=== PATIENT | male | born 1970 | race Caucasian/White ===

== ENCOUNTER 2024-07-02 13:11 | Emergency (ER) | payer MEDICAID, SELFPAY ==
[2024-07-02 13:17] VITALS: BP 179/96; PULSE 83; TEMP 36.8; O2SAT 97; BMI 38.0
--- NOTE | 2024-07-02 13:29 | ED_ITS ---
HPI - Extremity Injury (Upper) General: Chief Complaint: Extremity Injury, Upper Stated Complaint: Right thumb injury Time Seen by Provider: 07/02/24 13:23 Source: patient Mode of arrival: ambulatory Limitations: no limitations History of Present Illness: Patient is a 53-year-old male who presents to ED today for evaluation of a right thumb injury that he sustained yesterday after he was working on his motorcycle and accidentally got his thumb caught in a revolving chain. Few abrasions throughout the thumb. Last tetanus was over 8 years ago. Feels like something may be broke. complaint: injury to: right and finger Onset (ago): day(s) (yesterday) Other Extremity Injury: Right: fingers Other injuries: none Place: home Severity: severe Relieving factors: immobilization Exacerbating factors: movement of extremity Context: direct blow Associated symptoms: Reports no associated symptoms Related Data Previous Rx's Medication Instructions Recorded clindamycin HCl 300 mg capsule 300 mg PO Q6H 7 days #28 caps 07/02/24 Allergies Allergy/AdvReac Type Severity Reaction Status Date / Time Penicillins Allergy ALGY-Swell Verified 07/02/24 13:20 Lip/Tongue/Throat Review of Systems Musc: Reports: extremity pain (R thumb) and extremity swelling (R thumb) Neuro: Denies: numbness in extremities or sensory changes Physical Exam Const: COMMON NORMALS: no acute distress, no limitations, alert and well davy shed Extremity: RIGHT UPPER EXTREMITY: Yes hand & digits (TTP throughout R thumb mainly to proximal phalanx) Right hand and digits: Yes neurovascular exam (normal), Yes tendon exam (no tendon injuries appreciated) and Yes other (few mild abrasions that do not appear infected) Neuro: COMMON NORMALS: moves all extremities, no focal motor deficits and no sensory deficits noted SENSORIUM/ORIENTATION: Yes alert Course Vital Signs: Vital signs: Vital Signs Temperature 98.2 F 07/02/24 13:17 Pulse Rate 83 07/02/24 13:17 Blood Pressure 179/96 07/02/24 13:17 Pulse Oximetry 97 07/02/24 13:17 Oxygen Delivery Me thod Room Air 07/02/24 13:17 MDM - Extremity Injury (Upper) Medical Decision Making XR negative. Does have a few abrasions to the left thumb from cuts from the motorcycle chain. Will place on antibiotics. Recommend ice and elevation and monitoring for signs of infection. Return to ED precautions given. Medical Records I reviewed the patient's medical records. Lab Data Radiology Impressions Finger X-Ray 07/02/24 13:31 IMPRESSION: No acute fracture or dislocation. All radiology interpretation(s) finalized by discharge Discharge Plan Discharge Patient Disposition: Home Clinical Impression: Injury of right thumb Qualifiers: Encounter type: initial encounter Qualified Code(s): S69.91XA - Unspecified injury of right wrist, hand and finger(s), initial encounter Condition: Stable Prescriptions: New clindamycin HCl 300 mg capsule 300 mg PO Q6H 7 Days Qty: 28 0RF Discharge Orders: Discharge ED (Routine); Ordered 07/02/24 Ordered By: Nirali Beck Activity Restrictions/Additional Instructions: As we discussed, keep wounds on your thumb clean with warm soap and water. We will place you on antibiotics to hopefully avoid infection. You need to seek medical reevaluation for worsening pain, any redness, drainage, streaking up your hand or arm, fevers, or any other concerns you may have. Coding Level of Care Code ED [employer] for Orville Rebolledo
--- NOTE | 2024-07-02 13:31 | XRR_ITS ---
PROCEDURE INFORMATION: Exam: XR Right Finger(s) Exam date and time: 07/02/2024 2:06 PM Age: 53 years old Clinical indication: Injury or trauma; Other: Smashed thumb; Blunt trauma (contusions or hematomas); Finger; Right; Injury date: 07/01/24 TECHNIQUE: Imaging protocol: Radiologic exam of the right fingers. Views: Minimum 2 views. COMPARISON: No relevant prior studies available. FINDINGS: Bones/joints: No acute fracture or dislocation. 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 Soft tissues: Soft tissues are unremarkable as visualized. XR/XR finger RT min 2V [id number] IMPRESSION: No acute fracture or dislocation.
[2024-07-02] MEDS: tetanus-dipt-pertussis 0.5 mL SDV IM (13:50)
[2024-07-02 15:31] VITALS: BP 165/102; PULSE 72; O2SAT 96
== END 2024-07-02 15:32 | disposition home or self-care (01) ==
PROVIDERS: Emergency Provider Physician Assistant
DX: S60.312A Abrasion of left thumb, initial encounter (principal); W31.89XA Contact with other specified machinery, initial encounter; Z23 Encounter for immunization
CPT/HCPCS: 73140; 90471; 90715; 99283

== ENCOUNTER 2025-02-07 16:32 | Emergency (ER) | payer MEDICAID, SELFPAY ==
[2025-02-07 16:41] VITALS: BP 139/85; PULSE 90; RESP 18; TEMP 37.6; O2SAT 96; BMI 38.0
--- NOTE | 2025-02-07 16:49 | ED_ITS ---
Documented by User: Steven Roberts DO 02/08/25 08:02 HPI - Fall 2 General: Chief Complaint: Fall Stated Complaint: fell and cannot move head Time Seen by Provider: 02/07/25 16:49 History of Present Illness: 54-year-old male presents emergency room complaining of neck and head pain. He slipped and fell 2 days prior to presenting to the emergency room when he was walking on his desk it was wet. There is no loss of consciousness he did hit the back of his head he has had increasing neck pain since then it radiates into the upper back and shoulders but not into the arms. States whenever he moves his head particularly if he rotates or bends to the side he has significant worsening in pain Associated symptoms-after fall: Denies abdominal pain, chest pain or neck pain Related Data Home Medications ?Medication ?Instructions ?Recorded ?Confirmed albuterol sulfate 90 mcg/actuation 2 puff inhalation Q 4H 02/07/25 02/07/25 aerosol inhaler (Ventolin HFA) citalopram 20 mg tablet 20 mg PO DAILY 02/07/2501/16 hydroxyzine HCl 25 mg tablet 12.5 - 25 mg PO Q6H 02/0702/07/25 lisinopril 10 mg tablet 10 mg PO DAILY 02/07/2501/16 meclizine 25 mg tablet 25 mg PO Q8H 02/07/25 Previous Rx's ?Medication ?Instructions ?Recorded cyclobenzaprine 10 mg tablet 10 mg PO BID PRN muscle s pasm #20 02/07/25 tabs Allergies Allergy/AdvReac Type Severity Reaction Status Date / Time Penicillins Allergy ALGY-Swell Verified 07/02/24 13:20 Lip/Tongue/Throat Review of Systems 2 Const: Denies: fever(s) or chills Card: Denies: chest pain Resp: Denies: dyspnea GI: Denies: abdominal pain : Denies: dysuria, urinary frequency or urinary urgency Musc: Denies: neck pain or back pain Skin/Breast: Denies: rash Physical Exam 2 Const: COMMON NORMALS: no acute distress GENERAL APPEARANCE: cooperative and comfortable ORIENTATION/CONSCIOUSNESS: Yes awake, Yes oriented to person, Yes oriented to place and Yes oriented to time HENMT: COMMON NORMALS: normocephalic, atraumatic and hearing grossly normal bilaterally HEAD & SCALP: normocephalic and atraumatic Neck/C-Spine: OTHER: Minimal range of motion of the neck with palpation of the upper cervical spine at the lower occipital region patient has severe tenderness. Resp: COMMON NORMALS: normal respiratory effort, No retractions, No use of accessory muscles and clear to auscultation bilaterally AUSCULTATION: clear to auscultation bilaterally Cardio: COMMON NORMALS: regular rate, regular rhythm and No murmurs present (Cardio) RATE: regular rate RHYTHM: regular rhythm Extremity: COMMON NORMALS: normal to inspection, capillary refill normal, no clubbing, cyanosis or edema, no calf tenderness and no pedal edema Neuro: SENSORIUM/ORIENTATION: Yes oriented to person, Yes oriented to place and Yes oriented to time OTHER: Neurovascular the upper extremities strength is intact is 5 out of 5 with aircraft communicator strength at the elbows and of the shoulder girdle. Skin: COMMON NORMALS: no rashes or lesions noted GENERAL SKIN EXAM: no rashes or lesions noted Course 2 Vital Signs: Vital signs: Vital Signs Temperature 99.7 F H 02/07/25 16:41 Pulse Rate 71 02/07/25 18:45 Respiratory Rate 18 02/07/25 16:41 Blood Pressure 149/87 02/07/25 18:45 Pulse Oximetry 99 02/07/25 18:45 Oxygen Delivery Me thod Room Air 02/07/25 16:41 MDM - Fall Medical Decision Making CT cervical spine pending CT head to my read is unremarkable. Patient has a low-grade fever no leukocytosis. Care signed out to Dr. Beth at change of shift. See final notes for diagnosis and disposition. Patient is a awake and alert 54-year-old gentleman who is turned over to me pending reassessment after results of his CT scan of his head and neck and labs were obtained. Patient states that 3 nights ago he had walked out onto his deck and slipped on the wet decking causing him to fall back and strike his back and shoulders on the deck. He complains of primarily neck pain to the most cephalad portion of the neck in the occipital scalp and skull. Head CT was obtained which does not show any acute intracranial findings. He does not have any acute findings noted on CT scan of the cervical spine. Patient does have previous ACDF surgery. He was provided a dose of Toradol, dexamethasone, and Norflex here. CBC and CMP were obtained and are unremarkable. On my assessment patient is awake alert and in no acute distress. He is sitting up on the stretcher. He has 5 out of 5 strength in the bilateral upper and lower extremities with strong aircraft communicator strength bilaterally. He denies any weakness of his arms or legs. I have low suspicion for acute spinal cord pathology. He does report some numbness to the right thumb index and ring finger the radial nerve distribution. He has an appointment to see his primary care provider tomorrow at 10 AM. I think it is reasonable to continue some muscle relaxers, recommend alternation of cool and warm compresses, and follow-up with his PCP discuss further outpatient testing such as MRI. He expresses understanding and is comfortable with the plan. Lab Data 02/07/25 17:29 02/07/25 17:29 Radiology Impressions Cervical Spine CT 02/07/25 16:[address]: [address] evidence of acute cervical spine traumatic injury. 2. Additional findings, as above. Head CT 02/07/25 17:03 [address]PRESS[address]: 1[address] evidence of acute intracranial pathology. 2. Additional findings, as above. Laboratory Results WBC 10.84 10^3/uL (3.29-11.43) 02/07/25 17: RBC 5.11 10^6/uL (3.85-5.65) 02/07/25 17:29 Hgb 16.10 g/dL (11.27-16.99) 02/07/25 17: Hct 46.2 % (37-53) 02/07/25 17: MCV 90.4 fl (82-101) 02/07/25 17:29 MCH 31.5 pg (27-33) 02/07/25 17: MCHC 34.8 g/dL (30-55) 02/07/25 17: RDW 12.0 % (12.1-15.1) L 02/07/25 17: Plt Count 222 10^3/cmm (157-399) 02/07/25 17: MPV 9.9 fL (7.4-10.4) 02/07/25 17: Neut % (Auto) 59.4 % 02/07/25 17:29 Lymph % (Auto) 31.1 % 02/07/25 17: [place] % (Auto) 6.4 % 02/07/25 17: Eos % (Auto) 2.3 % 02/07/25 17: Baso % (Auto) 0.4 % 02/07/25 17: Neut # (Auto) 6.45 10^3/uL (1.8-7.7) 02/07/25 17: Lymph # (Auto) 3.4 10^3/uL (0.8-4.8) 02/07/25 17: [place] # (Auto) 0.7 10^3/uL (0.2-0.9) 02/07/25 17: Eos # (Auto) 0.3 10^3/uL (0.0-0.8) 02/07/25 17: Baso # (Auto) 0.0 10^3/uL (0.0-0.1) 02/07/25: Nucleated RBC % (auto) 0 % 02/07/25: Nucleated RBCs # 0.0 /100WBC 02/07/25 17: Sodium 140 mmol/L (136-145) 02/07/25 17: Potassium 3.7 mmol/L (3.5-5.1) 02/07/25 17: Chloride 103 mmol/L (98-107) 02/07/25 17: Carbon Dioxide 24 mmol/L (22-29) 02/07/25 17: Anion Gap 16.7 (5-19) 02/07/25 17: BUN 11 mg/dL (6-20) 02/07/25 17: Creatinine 0.8 mg/dL (0.7-1.2) 02/07/25 17: GFR Calculation 100.7 mL/min (90-130) 02/07/25 17: Glucose 96 mg/dL (65-115) 02/07/25 17: Calculated Osmolality 289 mOsm/kg (285-295) 02/07/25 17: Calcium 9.1 mg/dL (8.5-10.5) 02/07/25 17: Total Bilirubin 0.3 mg/dL (0.15-1.2) 02/07/25 17:29 AST 15 U/L (0-40) 02/07/25 17:29 ALT 17 U/L (0-41) 02/07/25 17:29 Alkaline Phosphatase 84 U/L (40-130) 02/07/25 17:29 Total Protein 7.1 g/dL (6.6-8.7) 02/07/25 17:29 Albumin 4.1 g/dL (3.5-5.2) 02/07/25 17:29 Globulin 3.0 g/dL (1.3-4.6) 02/07/25 17:29 Discharge Plan Discharge Patient Disposition: Home Clinical Impression: Closed head injury Qualifiers: Encounter type: initial encounter Qualified Code(s): S09.90XA - Unspecified injury of head, initial encounter Cervical strain Qualifiers: Encounter type: initial encounter Qualified Code(s): S16.1XXA - Strain of muscle, fascia and tendon at neck level, initial encounter Condition: Stable Prescriptions: New cyclobenzaprine 10 mg tablet 10 mg PO BID PRN (Reason: muscle spasm) Qty: 20 0RF No Action citalopram 20 mg tablet 20 mg PO DAILY meclizine 25 mg tablet 25 mg PO Q8H lisinopril 10 mg tablet 10 mg PO DAILY hydroxyzine HCl 25 mg tablet 12.5 - 25 mg PO Q6H albuterol sulfate [Ventolin HFA] 90 mcg/actuation HFA aerosol inhaler 2 puff INHALATION Q4H Discharge Orders: Discharge ED (Routine); Ordered 02/07/25 Ordered By: Trenton Beth Discharge Activity: Increase activity as tolerated Patient Instructions: Cervical Strain (ED), Opioid Safety, Pain Management Activity Restrictions/Additional Instructions: Take medication as prescribed. Follow-up with your primary care provider at 10 AM as scheduled tomorrow. Return to the ER for any new or worsening symptoms such as increasing neck pain, weakness of your arms or legs, or any other concerns. Print Language: Slovak Coding Level of Care Code ED [facility] for Orville Rebolledo Documented by User: Trenton Beth MD 02/07/25 18:37 HPI - Fall 2 General: Chief Complaint: Fall Stated Complaint: fell and cannot move head Time Seen by Provider: 02/07/25 16:49 History of Present Illness: Patient is a 54-year-old male who states that he fell on his back deck 3 days ago. He complains of headache and neck pain. Related Data Home Medications ?Medication ?Instructions ?Recorded ?Confirmed albuterol sulfate 90 mcg/actuation 2 puff inhalation Q 4H 02/07/25 02/07/25 aerosol inhaler (Ventolin HFA) citalopram 20 mg tablet 20 mg PO DAILY 02/07/2501/16 hydroxyzine HCl 25 mg tablet 12.5 - 25 mg PO Q6H 02/0702/07/25 lisinopril 10 mg tablet 10 mg PO DAILY 02/07/2501/16 meclizine 25 mg tablet 25 mg PO Q8H 02/07/25 Previous Rx's ?Medication ?Instructions ?Recorded cyclobenzaprine 10 mg tablet 10 mg PO BID PRN muscle s pasm #20 02/07/25 tabs Allergies Allergy/AdvReac Type Severity Reaction Status Date / Time Penicillins Allergy WISAM-Jaell Verified 07/02/24 13:20 Lip/Tongue/Throat Physical Exam 2 Const: COMMON NORMALS: no acute distress, average body habitus, alert and well nourished GENERAL APPEARANCE: cooperative ORIENTATION/CONSCIOUSNESS: Yes awake HENMT: COMMON NORMALS: normocephalic and atraumatic HEAD & SCALP: n ormocephalic and atraumatic Eye: COMMON NORMALS: conjunctivae normal CONJUNCTIVA: Yes conjunctivae normal Neck/C-Spine: GENERAL: Yes normal visual inspection Resp: COMMON NORMALS: normal respiratory effort, No retractions and No use of accessory muscles Cardio: COMMON NORMALS: regular rhythm and Peripheral pulses 2+ throughout RHYTHM: regular rhythm PERIPHERAL PULSES: Peripheral pulses 2+ throughout GI: COMMON NORMALS: Soft to palpation and non-tender PALPATION: Yes Soft to palpation Extremity: COMMON NORMALS: full ROM and no pedal edema Neuro: COMMON NORMALS: no focal motor deficits SENSORIUM/ORIENTATION: Yes alert Skin: COMMON NORMALS: no rashes or lesions noted GENERAL SKIN EXAM: no rashes or lesions noted Course 2 Vital Signs: Vital signs: Vital Signs Temperature 99.7 F H 02/07/25 16:41 Pulse Rate 71 02/07/25 18:45 Respiratory Rate 18 02/07/25 16:41 Blood Pressure 149/87 02/07/25 18:45 Pulse Oximetry 99 02/07/25 18:45 Oxygen Delivery Me thod Room Air 02/07/25 16:41 MDM - Fall Medical Decision Making Patient is a awake and alert 54-year-old gentleman who is turned over to me pending reassessment after results of his CT scan of his head and neck and labs were obtained. Patient states that 3 nights ago he had walked out onto his deck and slipped on the wet decking causing him to fall back and strike his back and shoulders on the deck. He complains of primarily neck pain to the most cephalad portion of the neck in the occipital scalp and skull. Head CT was obtained which does not show any acute intracranial findings. He does not have any acute findings noted on CT scan of the cervical spine. Patient does have previous ACDF surgery. He was provided a dose of Toradol, dexamethasone, and Norflex here. CBC and CMP were obtained and are unremarkable. On my assessment patient is awake alert and in no acute distress. He is sitting up on the stretcher. He has 5 out of 5 strength in the bilateral upper and lower extremities with strong aircraft communicator strength bilaterally. He denies any weakness of his arms or legs. I have low suspicion for acute spinal cord pathology. He does report some numbness to the right thumb index and ring finger the radial nerve distribution. He has an appointment to see his primary care provider tomorrow at 10 AM. I think it is reasonable to continue some muscle relaxers, recommend alternation of cool and warm compresses, and follow-up with his PCP discuss further outpatient testing such as MRI. He expresses understanding and is comfortable with the plan. Lab Data I reviewed the patient's lab results. 02/07/25 17:29 02/07/25 17:29 Radiology Impressions Cervical Spine CT 02/07/25 16:[address]: 1[address] evidence of acute cervical spine traumatic injury. 2. Additional findings, as above. Head CT 02/07/25 17:03 IMPRESSION: 1[address] No CT evidence of acute intracranial pathology. 2. Additional findings, as above. Laboratory Results WBC 10.84 10^3/uL (3.29-11.43) 02/07/25: RBC 5.11 10^6/uL (3.85-5.65) 02/07/25 17: Hgb 16.10 g/dL (11.27-16.99) 02/07/25 17: Hct 46.2 % (37-53) 02/07/25 17: MCV 90.4 fl (82-101) 02/07/25 17: MCH 31.5 pg (27-33) 02/07/25 17: MCHC 34.8 g/dL (30-55) 02/07/25: RDW 12.0 % (12.1-15.1) L 02/07/25: Plt Count 222 10^3/cmm (157-399) 02/07/25: MPV 9.9 fL (7.4-10.4) 02/07/25 17: Neut % (Auto) 59.4 % 02/07/25 17: Lymph % (Auto) 31.1 % 02/07/25: [place] % (Auto) 6.4 % 02/07/25: Eos % (Auto) 2.3 % 02/07/25: Baso % (Auto) 0.4 % 02/07/25: Neut # (Auto) 6.45 10^3/uL (1.8-7.7) 02/07/25: Lymph # (Auto) 3.4 10^3/uL (0.8-4.8) 02/07/25 17: [place] # (Auto) 0.7 10^3/uL (0.2-0.9) 02/07/25: Eos # (Auto) 0.3 10^3/uL (0.0-0.8) 02/07/25: Baso # (Auto) 0.0 10^3/uL (0.0-0.1) 02/07/25: Nucleated RBC % (auto) 0 % 02/07/25: Nucleated RBCs # 0.0 /100WBC 02/07/25 17:29 Sodium 140 mmol/L (136-145) 02/07/25 17:29 Potassium 3.7 mmol/L (3.5-5.1) 02/07/25 17:29 Chloride 103 mmol/L (98-107) 02/07/25 17:29 Carbon Dioxide 24 mmol/L (22-29) 02/07/25 17:29 Anion Gap 16.7 (5-19) 02/07/25 17:29 BUN 11 mg/dL (6-20) 02/07/25 17:29 Creatinine 0.8 mg/dL (0.7-1.2) 02/07/25 17:29 GFR Calculation 100.7 mL/min (90-130) 02/07/25 17:29 Glucose 96 mg/dL (65-115) 02/07/25 17:29 Calculated Osmolality 289 mOsm/kg (285-295) 02/07/25 17:29 Calcium 9.1 mg/dL (8.5-10.5) 02/07/25 17:29 Total Bilirubin 0.3 mg/dL (0.15-1.2) 02/07/25 17:29 AST 15 U/L (0-40) 02/07/25 17:29 ALT 17 U/L (0-41) 02/07/25 17:29 Alkaline Phosphatase 84 U/L (40-130) 02/07/25 17:29 Total Protein 7.1 g/dL (6.6-8.7) 02/07/25 17:29 Albumin 4.1 g/dL (3.5-5.2) 02/07/25 17:29 Globulin 3.0 g/dL (1.3-4.6) 02/07/25 17:29 All radiology interpretation(s) finalized by discharge Discharge Plan Discharge Patient Disposition: Home Clinical Impression: Closed head injury Qualifiers: Encounter type: initial encounter Qualified Code(s): S09.90XA - Unspecified injury of head, initial encounter Cervical strain Qualifiers: Encounter type: initial encounter Qualified Code(s): S16.1XXA - Strain of muscle, fascia and tendon at neck level, initial encounter Condition: Stable Prescriptions: New cyclobenzaprine 10 mg tablet 10 mg PO BID PRN (Reason: muscle spasm) Qty: 20 0RF No Action citalopram 20 mg tablet 20 mg PO DAILY meclizine 25 mg tablet 25 mg PO Q8H lisinopril 10 mg tablet 10 mg PO DAILY hydroxyzine HCl 25 mg tablet 12.5 - 25 mg PO Q6H albuterol sulfate [Ventolin HFA] 90 mcg/actuation HFA aerosol inhaler 2 puff INHALATION Q4H Discharge Orders: Discharge ED (Routine); Ordered 02/07/25 Ordered By: Trenton Beth Discharge Activity: Increase activity as tolerated Patient Instructions: Cervical Strain (ED), Opioid Safety, Pain Management Activity Restrictions/Additional Instructions: Take medication as prescribed. Follow-up with your primary care provider at 10 AM as scheduled tomorrow. Return to the ER for any new or worsening symptoms such as increasing neck pain, weakness of your arms or legs, or any other concerns. Print Language: Slovak Coding Level of Care Code ED [facility] for Orville Rebolledo
--- NOTE | 2025-02-07 16:49 | CTR_ITS ---
PROCEDURE INFORMATION: Exam: CT Cervical Spine Without Contrast Exam date and time: 02/07/2025 5:06 PM Age: 54 years old Clinical indication: Injury or trauma; Fall; Blunt trauma; Prior surgery; Surgery date: 6+ months; Surgery type: Cervical fusion 6 years ago TECHNIQUE: Imaging protocol: Computed tomography of the cervical spine without contrast. Axial, coronal and sagittal reformatted images were created and reviewed. Radiation optimization: All CT scans at this facility use at least one of these dose optimization techniques: automated exposure control; mA and/or kV adjustment per patient size (includes targeted exams where dose is matched to clinical indication); or iterative reconstruction. COMPARISON: CT head wo con* [id number] 02/07/2025 5:06 PM RADIATION DOSE METRICS: Total DLP (mGy-cm): 602 FINDINGS: Bones: Osteopenia. Straightening of the normal cervical lordosis. Status post C6-C7 ACDF. No CT evidence of acute fracture, dislocation or subluxation. Alignment anatomic. Minimal dextroscoliosis. Vertebral body heights maintained. Mild multilevel degenerative changes, characterized by disc space narrowing, osteophytosis and uncovertebral and facet joint hypertrophy. Mild multilevel spinal canal and neural foraminal narrowing. Lungs: Lung apices are normal. Soft tissues: Grossly unremarkable. CT/CT cervical spin wo con* [id number] IMPRESSION: 1. No CT evidence of acute cervical spine traumatic injury. 2. Additional findings, as above.
--- NOTE | 2025-02-07 17:03 | CTR_ITS ---
PROCEDURE INFORMATION: Exam: CT Head Without Contrast Exam date and time: 02/07/2025 5:06 PM Age: 54 years old Clinical indication: Injury or trauma; Fall; Blunt trauma (contusions or hematomas); Without loss of consciousness TECHNIQUE: Imaging protocol: Computed tomography of the head without contrast. Axial, coronal and sagittal reformatted images were created and reviewed. Radiation optimization: All CT scans at this facility use at least one of these dose optimization techniques: automated exposure control; mA and/or kV adjustment per patient size (includes targeted exams where dose is matched to clinical indication); or iterative reconstruction. COMPARISON: CT cervical spin wo con* [id number] 02/07/2025 5:06 PM RADIATION DOSE METRICS: Total DLP (mGy-cm): 1166.7 FINDINGS: Brain: No CT evidence of acute intracranial hemorrhage or acute territorial infarction. No significant mass effect or midline shift. Basal cisterns patent. Cerebral ventricles: Prominence of the cortical sulci, cisterns and ventricular system, consistent with cerebral and cerebellar volume loss. Paranasal sinuses: Minimal ethmoid and left sphenoid sinus mucosal thickening. No air-fluid levels. Mastoid air cells: Grossly unremarkable. Bones: Unremarkable. No acute fracture. Soft tissues: Grossly unremarkable. CT/CT head wo con* [id number] IMPRESSION: 1. No CT evidence of acute intracranial pathology. 2. Additional findings, as above.
[2025-02-07] MEDS: ketorolac 30 mg/mL INJ IVP (17:38)
[2025-02-07] MEDS: orphenadrine 30 mg/mL Inj 2 mL 60 MG IM (17:39)
[2025-02-07] MEDS: dexamethasone 10 mg/mL INJ IM (17:41)
[2025-02-07] MEDS: morphine 4 mg/mL SDV 1 mL IVP (17:41)
[2025-02-07 17:54] LABS: Basophils % 0.4 %; Eosinophils # 0.3 10^3/uL (0.0-0.8); Eosinophils % 2.3 %; Hematocrit 46.2 % (37-53); Lymphocytes # 3.4 10^3/uL (0.8-4.8); Lymphocytes % 31.1 %; Mean Corpuscular HGB Conc 34.8 g/dL (30-55); Mean Corpuscular Hemoglobin 31.5 pg (27-33); Mean Corpuscular Volume 90.4 fl (82-101); Mean Platelet Volume 9.9 fL (7.4-10.4); Monocytes # 0.7 10^3/uL (0.2-0.9); Monocytes % 6.4 %; Neutrophils # 6.45 10^3/uL (1.8-7.7); Neutrophils % 59.4 %; Nucleated Red Blood Cells % 0 %; Platelet Count 222 10^3/cmm (157-399); Red Blood Count 5.11 10^6/uL (3.85-5.65); White Blood Count 10.84 10^3/uL (3.29-11.43)
[2025-02-07 18:09] LABS: Alanine Aminotransferase 17 U/L (0-41); Albumin Level 4.1 g/dL (3.5-5.2); Alkaline Phosphatase 84 U/L (40-130); Anion Gap 16.7 (5-19); Aspartate Amino Transferase 15 U/L (0-40); Blood Urea Nitrogen 11 mg/dL (6-20); Calcium 9.1 mg/dL (8.5-10.5); Carbon Dioxide 24 mmol/L (22-29); Chloride 103 mmol/L (98-107); Creatinine Clr Calc Pharmacy 137.1831; Glomerular Filtration Rate 100.7 mL/min (90-130); Glucose 96 mg/dL (65-115); Osmolality Calculated 289 mOsm/kg (285-295); Potassium 3.7 mmol/L (3.5-5.1); Sodium 140 mmol/L (136-145); Total Bilirubin 0.3 mg/dL (0.15-1.2); Total Protein 7.1 g/dL (6.6-8.7)
[2025-02-07 18:45] VITALS: BP 149/87; PULSE 71; O2SAT 99
== END 2025-02-07 18:46 | disposition home or self-care (01) ==
PROVIDERS: Family Medicine; Emergency Provider Student in an Organized Health Care Education/Training Program
DX: S09.8XXA Other specified injuries of head, initial encounter (principal); S16.1XXA Strain of muscle, fascia and tendon at neck level, initial encounter; W01.0XXA Fall on same level from slipping, tripping and stumbling without subsequent striking against object, initial encounter
CPT/HCPCS: 36415; 70450; 72125; 80053; 85025; 96372; 96374; 96375; 99285; J1100; J1885; J2270; J2360

== ENCOUNTER → 2025-04-16 15:25 | Outpatient (BNVA) | payer MEDICAID, SELFPAY | PROVIDERS: PCP Nurse Practitioner Family; Visit Provider Orthopaedic Surgery | DX: M54.50 Low back pain, unspecified (principal); M54.2 Cervicalgia; M54.9 Dorsalgia, unspecified | CPT/HCPCS: 72050; 72110 ==

== ENCOUNTER 2025-09-04 14:31 | Emergency (ER) | payer MEDICAID, SELFPAY ==
--- NOTE | 2025-09-04 14:39 | CTR_ITS ---
PROCEDURE INFORMATION: Exam: CT Neck With Contrast Exam date and time: 09/04/2025 2:44 PM Age: 54 years old Clinical indication: Dyspnea / difficulty breathing; Additional info: Difficulty swallowing TECHNIQUE: Imaging protocol: Computed tomography of the neck with contrast. Radiation optimization: All CT scans at this facility use at least one of these dose optimization techniques: automated exposure control; mA and/or kV adjustment per patient size (includes targeted exams where dose is matched to clinical indication); or iterative reconstruction. Contrast material: [id number]; Contrast volume: 100 ml; Contrast route: INTRAVENOUS (IV); COMPARISON: CT cervical spin wo con* [id number] 02/07/2025 5:06 PM RADIATION DOSE METRICS: Total DLP (mGy-cm): 314.54 FINDINGS: Salivary glands: Normal. Glands are normal in size. Pharynx: Unremarkable. No significant tonsillar enlargement. Larynx: Unremarkable. Epiglottis is normal. Thyroid: Normal. No enlarged or calcified nodules. Trachea: Visualized trachea is unremarkable. Lungs: Unremarkable as visualized. Lymph nodes: Two small left level 2A nodes measuring up to 5 mm in short axis. Bones/joints: Hyperdense mass centered in the left oral tongue and floor of mouth extending inferiorly just anterior to the left of the hyoid bone. This is vertically elongated at 4.2 cm superior to inferior with additional dimensions 3.4 and 2.8 cm. Soft tissues: Unremarkable. No significant soft tissue swelling. CT/CT neck w con* [id number] IMPRESSION: 1. Hyperdense mass centered in the left oral tongue and floor of mouth extending inferiorly just anterior to the left of the hyoid bone. This is vertically elongated at 4.2 cm superior to inferior with additional dimensions 3.4 and 2.8 cm. Direct visualization and possibly MRI recommended. 2. Two small left level 2A nodes measuring up to 5 mm in short axis.
[2025-09-04 14:43] VITALS: BP 124/98; PULSE 107; RESP 25; TEMP 36.5; O2SAT 100
--- NOTE | 2025-09-04 14:51 | ED_ITS ---
HPI - General Adult 2 General: Chief complaint: Airway/Esophagus Foreign Body Stated complaint: feels throat swelling shut Time Seen by Provider: 09/04/25 14:37 Source: patient Mode of arrival: ambulatory Limitations: no limitations History of Present Illness: 54-year-old male states he has been havi ng difficulty swallowing along with feelings of shortness of breath like his throat closing over the last hour. He denies any history of allergic reaction states that he had a large cyst in his throat removed 15 years ago. Patient here does have a hoarse voice but is handling secretions denies any fevers. Related Data Home Medications ?Medication ?Instructions ?Recorded ?Confirmed albuterol sulfate 90 mcg/actuation 2 puff inhalation Q 4H 02/07/25 04/16/25 aerosol inhaler (Ventolin HFA) citalopram 20 mg tablet 20 mg PO DAILY 02/07/2511/10 hydroxyzine HCl 25 mg tablet 12.5 - 25 mg PO Q6H 02/0704/16/25 lisinopril 10 mg tablet 10 mg PO DAILY 02/07/2511/10 meclizine 25 mg tablet 25 mg PO Q8H 02/07/25 Previous Rx's ?Medication ?Instructions ?Recorded cyclobenzaprine 10 mg tablet 10 mg PO BID PRN muscle s pasm #20 02/07/25 tabs prednisone 20 mg tablet 20 mg PO DAILY #15 tabs 11/10 Allergies Allergy/AdvReac Type Severity Reaction Status Date / Time Penicillins Allergy WISAM-Jaell Verified 07/02/24 13:20 Lip/Tongue/Throat PFSH ED 2 PFSH: Social History Smoking and tobacco/nicotine status: never used tobacco/nicotine Physical Exam 2 Const: COMMON NORMALS: patient oriented x3 HENMT: COMMON NORMALS: normocephalic and atraumatic HEAD & SCALP: n ormocephalic and atraumatic MOUTH: Normal oral and palatal mucosa present THROAT: posterior oropharynx normal Eye: COMMON NORMALS: Equal, round and reactive pupils present and EOMs intact bilaterally PUPIL: Yes Equal, round and reactive pupils present Neck/C-Spine: COMMON NORMALS: full ROM and supple Chest: COMMONS NORMALS: normal inspection of the chest and normal palpation of entire chest wall Resp: COMMON NORMALS: normal respiratory effort, No retractions, No use of accessory muscles and clear to auscultation bilaterally AUSCULTATION: clear to auscultation bilaterally Cardio: COMMON NORMALS: regular rate, regular rhythm and No murmurs present (Cardio) RATE: regular rate RHYTHM: regular rhythm GI: COMMON NORMALS: Normal to inspection, nondistended, normoactive bowel sounds present, Soft to palpation, non-tender and no masses PALPATION: Yes Soft to palpation Extremity: COMMON NORMALS: normal to inspection and full ROM Neuro: COMMON NORMALS: patient oriented x3, moves all extremities and no focal motor deficits Psych: COMMON NORMALS: mental status grossly normal, Normal thought process present and cooperative THOUGHT PROCESS: Normal thought process present Skin: COMMON NORMALS: no rashes or lesions noted and no wounds GENERAL SKIN EXAM: no rashes or lesions noted Course 2 Vital Signs: Vital signs: Vital Signs Temperature 97.7 F 09/04/25 14:43 Pulse Rate 107 H 09/04/25 14:43 Respiratory Rate 25 H 09/04/25 14:43 Blood Pressure 124/98 09/04/25 14:43 Pulse Oximetry 100 09/04/25 14:43 Oxygen Delivery Me thod Room Air 09/04/25 14:43 MDM - General Adult Medical Decision Making 54-year-old male presents here with like his throat closing. Differential including Gutierrez's angina, angioedema, retropharyngeal abscess. Patient's blood work did show an elevated white count here at 16. CT scan did show a mass at the base of the tongue. He has no signs of airway compromise. His pulse ox benign 9% here he states his breathing feels improved after the steroids and Benadryl. Did give him a dose of clindamycin concerned he could have Gutierrez's angina. I did speak to [facility] ER physician Dr. Meeks who is excepting patient ER to ER for emergent ENT consultation. Medical Records I reviewed the patient's medical records. Lab Data I reviewed the patient's lab results. 09/04/25 14:53 09/04/25 14:[address] 09/04/25 14:39 IMPRESSION: 1. Hyperdense mass centered in the left oral tongue and floor of mouth extending inferiorly just anterior to the left of the hyoid bone. This is vertically elongated at 4.2 cm superior to inferior with additional dimensions 3.4 and 2.8 cm. Direct visualization and possibly MRI recommended. 2. Two small left level 2A nodes measuring up to 5 mm in short axis. Laboratory Results WBC 16.16 10^3/uL (3.29-11.43) H 09/04/25 14:53 RBC 4.17 10^6/uL (3.85-5.65) 09/04/25 14:53 Hgb 13.10 g/dL (11.27-16.99) 09/04/25 14:53 Hct 37.4 % (37-53) 09/04/25 14:53 MCV 89.7 fl (82-101) 09/04/25 14:53 MCH 31.4 pg (27-33) 09/04/25 14:53 MCHC 35.0 g/dL (30-55) 09/04/25 14:53 RDW 12.5 % (12.1-15.1) 09/04/25 14:53 Plt Count 203 10^3/cmm (157-399) 09/04/25 14:53 MPV 9.9 fL (7.4-10.4) 09/04/25 14:53 Neut % (Auto) 53.7 % 09/04/25 14:53 Lymph % (Auto) 36.2 % 09/04/25 14:53 [place]verse % (Auto) 7.9 % 09/04/25 14:53 Eos % (Auto) 1.7 % 09/04/25 14:53 Baso % (Auto) 0.2 % 09/04/25 14:53 Neut # (Auto) 8.67 10^3/uL (1.8-7.7) H 09/04/25 14:53 Lymph # (Auto) 5.9 10^3/uL (0.8-4.8) H 09/04/25 14:53 [place] # (Auto) 1.3 10^3/uL (0.2-0.9) H 09/04/25 14:53 Eos # (Auto) 0.3 10^3/uL (0.0-0.8) 09/04/25 14:53 Baso # (Auto) 0.0 10^3/uL (0.0-0.1) 09/04/25 14:53 Nucleated RBC % (auto) 0 % 09/04/25 14:53 Nucleated RBCs # 0.0 /100WBC 09/04/25 14:53 Sodium 135 mmol/L (136-145) L 09/04/25 14:53 Potassium 3.4 mmol/L (3.5-5.1) L 09/04/25 14:53 Chloride 99 mmol/L (98-107) 09/04/25 14:53 Carbon Dioxide 25 mmol/L (22-29) 09/04/25 14:53 Anion Gap 14.4 (5-19) 09/04/25 14:53 BUN 16 mg/dL (6-20) 09/04/25 14:53 Creatinine 0.8 mg/dL (0.7-1.2) 09/04/25 14:53 GFR Calculation 100.7 mL/min (90-130) 09/04/25 14:53 Glucose 101 mg/dL (65-115) 09/04/25 14:53 Calculated Osmolality 281 mOsm/kg (285-295) L 09/04/25 14:53 Calcium 8.6 mg/dL (8.5-10.5) 09/04/25 14:53 Total Bilirubin 0.7 mg/dL (0.15-1.2) 09/04/25 14:53 AST 30 U/L (0-40) 09/04/25 14:53 ALT 30 U/L (0-41) 09/04/25 14:53 Alkaline Phosphatase 87 U/L (40-130) 09/04/25 14:53 Total Protein 6.2 g/dL (6.6-8.7) L 09/04/25 14:53 Albumin 3.9 g/dL (3.5-5.2) 09/04/25 14:53 Globulin 2.3 g/dL (1.3-4.6) 09/04/25 14:53 All radiology interpretation(s) finalized by discharge Discharge Plan Discharge Patient Disposition: Xfer Short-Term Hosp Clinical Impression: Tongue mass Condition: Stable Print Language: Honduran Coding Level of Care Code ED Print Line Feeder for Orville Rebolledo
[2025-09-04] MEDS: methylPREDNISolone sod succ 125 mg/2 mL INJ IVP (14:53)
[2025-09-04] MEDS: diphenhydrAMINE 50 mg/mL SDV 1mL IVP (14:54)
[2025-09-04] MEDS: iohexol 350 mg/mL 500 mL Btl (per mL) IV (14:55)
[2025-09-04 15:00] VITALS: BP 117/87; PULSE 108; RESP 18; O2SAT 98
[2025-09-04 15:10] LABS: Hematocrit 37.4 % (37-53); Hemoglobin 13.10 g/dL (11.27-16.99); Mean Corpuscular HGB Conc 35.0 g/dL (30-55); Mean Corpuscular Hemoglobin 31.4 pg (27-33); Mean Corpuscular Volume 89.7 fl (82-101); Nucleated Red Blood Cells % 0 %; Platelet Count 203 10^3/cmm (157-399); Red Blood Count 4.17 10^6/uL (3.85-5.65); White Blood Count 16.16 10^3/uL (3.29-11.43)
[2025-09-04 15:23] LABS: Alanine Aminotransferase 30 U/L (0-41); Albumin Level 3.9 g/dL (3.5-5.2); Alkaline Phosphatase 87 U/L (40-130); Anion Gap 14.4 (5-19); Aspartate Amino Transferase 30 U/L (0-40); Blood Urea Nitrogen 16 mg/dL (6-20); Calcium 8.6 mg/dL (8.5-10.5); Carbon Dioxide 25 mmol/L (22-29); Chloride 99 mmol/L (98-107); Globulin 2.3 g/dL (1.3-4.6); Glucose 101 mg/dL (65-115); Osmolality Calculated 281 mOsm/kg (285-295); Potassium 3.4 mmol/L (3.5-5.1); Sodium 135 mmol/L (136-145); Total Protein 6.2 g/dL (6.6-8.7)
[2025-09-04 15:30] VITALS: BP 135/77; PULSE 74; RESP 74; O2SAT 97
[2025-09-04 15:52] VITALS: PULSE 78; RESP 18; O2SAT 98
[2025-09-04 16:20] VITALS: BP 118/68; PULSE 101; O2SAT 97
== END 2025-09-04 16:21 | disposition short-term general hospital (02) ==
PROVIDERS: Emergency Provider Emergency Medicine
DX: K14.8 Other diseases of tongue (principal)
CPT/HCPCS: 36415; 70491; 80053; 85025; 94640; 96365; 96372; 96375; 99285; J0169; J1200; J2919; J3490; J9999